=== PATIENT | female | born 1940 | race Caucasian/White ===

== ENCOUNTER → 2016-11-01 | Outpatient (CLI) | payer OTHER, MEDICARE ==
[~2016-11-01] MED LIST: AMLO-114 PO; CALCTAB65 PO; CLX20 PO; FLAX100025 PO; LPR50X PO; LSN40 PO; METO50TA17 PO; MTR600X PO; MULT-506 PO; PANT40TA PO
[2016-11-01 17:27] LABS: BASO % 0.9 %; BASO ABS # 0.07 K/uL (0-0.2); COMPLETE YES; HEMATOCRIT 39.3 % (37-47); IG% 0.1 %; LYMPH % 26.7 %; LYMPH ABS # 2.14 K/uL (1.2-3.4); MEAN CELL VOLUME 92.9 fL (80-100); MEAN CORPUSCULAR HEMOGLOBIN 30.3 pg (25-34); MEAN CORPUSCULAR HGB CONC 32.6 g/dl (32-36); MEAN PLATELET VOLUME 9.9 fL (7.4-10.4); MONO % 8.6 %; NEUT % 62.7 %; PLATELET COUNT 288 K/uL (130-400); RED BLOOD COUNT 4.23 M/uL (4.2-5.4); WHITE BLOOD COUNT 8.02 K/uL (4.8-10.8)
[2016-11-01 17:42] LABS: ALT/SGPT 23 U/L (12-78); AST/SGOT 23 U/L (15-37); BLOOD UREA NITROGEN 13 mg/dl (7-18); BUN/CREATININE RATIO 13.4 (10-20); CALCIUM 9.5 mg/dl (8.5-10.1); CARBON DIOXIDE 30 mmol/L (21-32); CHLORIDE 104 mmol/L (98-107); CREATININE 0.94 mg/dl (0.60-1.20); GLUCOSE 81 mg/dl (70-99); POTASSIUM 4.2 mmol/L (3.5-5.1); SODIUM 141 mmol/L (136-145)
[2016-11-01 17:54] LABS: ALKALINE PHOSPHATASE 62 U/L (45-117)
== END | disposition home or self-care (01) ==
LOC: C.LABBFT 11:52
PROVIDERS: ATTEND Nurse Practitioner
DX: I10 Essential (primary) hypertension (principal)

== ENCOUNTER → 2017-05-11 | Outpatient (CLI) | payer OTHER ==
[2017-05-11 12:19] LABS: BASO % 0.5 %; BASO ABS # 0.05 K/uL (0-0.2); COMPLETE YES; EOS % 1.1 %; HEMATOCRIT 38.7 % (37-47); IG% 0.2 %; LYMPH ABS # 1.87 K/uL (1.2-3.4); MEAN CELL VOLUME 91.7 fL (80-100); MEAN CORPUSCULAR HEMOGLOBIN 30.3 pg (25-34); MEAN CORPUSCULAR HGB CONC 33.1 g/dl (32-36); MEAN PLATELET VOLUME 9.9 fL (7.4-10.4); MONO % 7.7 %; NEUT % 70.5 %; PLATELET COUNT 274 K/uL (130-400); RED BLOOD COUNT 4.22 M/uL (4.2-5.4); WHITE BLOOD COUNT 9.35 K/uL (4.8-10.8)
[2017-05-11 12:36] LABS: ALT/SGPT 23 U/L (12-78); AST/SGOT 24 U/L (15-37); BLOOD UREA NITROGEN 14 mg/dl (7-18); BUN/CREATININE RATIO 15.3 (10-20); CALCIUM 9.6 mg/dl (8.5-10.1); CARBON DIOXIDE 31 mmol/L (21-32); CHLORIDE 102 mmol/L (98-107); CREATININE 0.93 mg/dl (0.60-1.20); GLUCOSE 90 mg/dl (70-99); POTASSIUM 4.1 mmol/L (3.5-5.1); SODIUM 137 mmol/L (136-145)
[2017-05-11 12:41] LABS: ALB/GLOB RATIO 1.1 (0.9-2); ALKALINE PHOSPHATASE 58 U/L (45-117); TOTAL IRON BINDING CAPACITY 276 mcg/dl (250-450)
== END | disposition home or self-care (01) ==
LOC: C.LABBFT 10:44
PROVIDERS: ATTEND Internal Medicine
DX: K57.92 Diverticulitis of intestine, part unspecified, without perforation or abscess without bleeding (principal); I10 Essential (primary) hypertension

== ENCOUNTER → 2017-05-14 | Day surgery (SDC) | payer OTHER | END | disposition home or self-care (01) | LOC: C.ACU 13:44 | PROVIDERS: ATTEND Physician Assistant Medical | DX: Z93.3 Colostomy status (principal); C64.9 Malignant neoplasm of unspecified kidney, except renal pelvis; K57.92 Diverticulitis of intestine, part unspecified, without perforation or abscess without bleeding; I10 Essential (primary) hypertension; M19.90 Unspecified osteoarthritis, unspecified site; F41.9 Anxiety disorder, unspecified; M81.0 Age-related osteoporosis without current pathological fracture; Z86.718 Personal history of other venous thrombosis and embolism; Z90.5 Acquired absence of kidney; Z82.49 Family history of ischemic heart disease and other diseases of the circulatory system; Z87.891 Personal history of nicotine dependence ==

== ENCOUNTER 2019-06-04 11:42 | Inpatient (IN) ==
[2019-06-04] MEDS ORDERED: ACETAMINOPHEN 325 MG TAB PO PRN (17:32)
[2019-06-04] MEDS ORDERED: HydrALAZINE HCL 20 MG/ML VIAL IV PRN (17:40)
--- NOTE | 2019-06-04 17:40 | History & Physical Report ---
Date of Service June 04, 2019 Assessment & Plan (1) Jaundice: Painless jaundice with Tbili of 9.3. - Plan for ERCP tomorrow with Dr. Lorenzana - NPO @ midnight - Repeat labs today - EKG for pre-op - Gentle IVFs in the AM (2) Hypertension: BP up to 180/80 on presentation. - Continue home meds - Hydralazine PRN (3) Depression: No depressive symptoms at this time. - Continue SSRI (4) DVT prophylaxis: SCDs - Hold heparin prior to ERCP History of Present Illness Primary Care Provider: Venkat De La Fuente MD 78yo F w/ hx of resected RCC who presents with painless jaundice. Was noted by her PCP on last, annual visit. Until that time, the patient had not noted it. Labs showed TBili of 9.3. CT a/p shows 1.8 cm common bile duct dilation with "abnormal density" that could represent stones, sludge, or possibly an intraductal mass. The patient was convinced to come into the hospital for an ERCP with Dr. Lorenzana. She is in her usual state of health and notes no abnormal symptoms apart from the jaundice. Allergies Allergy/AdvReac Type Severity Reaction Status Date / Time Iodinated Contrast Media AdvReac Nausea Verified 05/30/19 13:32 Home Medications Home Medications Medication Instructions Recorded Confirmed Type pantoprazole 40 mg tablet,delayed 40 mg PO DAILY #90 tab 11/20/18 06/04/19 Rx release lisinopril 20 mg tablet 20 mg PO BID #180 tab 12/10/18 06/04/19 Rx metoprolol tartrate 25 mg tablet 25 mg PO BID #180 tab 12/10/18 06/04/19 Rx mirtazapine 15 mg tablet 15 mg PO DAILY #90 tab 12/10/18 06/04/19 Rx montelukast 10 mg tablet 10 mg PO HS #90 tab 12/10/18 06/04/19 Rx escitalopram oxalate 20 mg tablet 20 mg PO DAILY #90 tab 02/04/19 06/04/19 Rx multivitamin 1 tab PO DAILY 05/18/19 06/04/19 History Past Med/Surg History Medical History History of diverticulitis of colon History of renal cell carcinoma Hypertension Surgical History History of colonoscopy History of colostomy History of laparoscopy History of nephrectomy, right Family History Mother Hypertension Brain cancer Uncle Hypertension Aunt Hypertension Social History Preferred Language: Swedish Communication Ability: Effective Hearing Ability: Normal Core Feeder Required: No Beliefs That Will Affect Care: None marital status: / Current Living Situation: Alone current occupational status: retired Other Information That Helps Us Care for You: No Feels Safe at Home: Yes Safety Concerns: Feels Safe At This Time Smoking Status: Former smoker Tobacco Type: cigarettes ; Age Started Using Tobacco: 17 ; Cigarettes Per Day: 10 ; Do You Dip or Chew Tobacco: No ; Smoking End Date: 2008 ; Second Hand Exposure: No ; Tobacco Cessation Education Requested by Patient: No Hx Alcohol Use: Yes Alcohol type: beer Alcohol Intake Frequency: Weekly Hx Substance Use: No Seatbelt Use: always Sunscreen Use: No Review of Systems Review of Systems: All systems reviewed & are unremarkable except as noted in HPI & below Physical Exam Constitutional: WD/WN, vitals as above cooperative; no acute distress Eyes: EOM intact bilaterally; no conjunctival abnormality ENMT: external ear and nose normal, oropharynx normal Neck: trachea midline, no thyromegaly normal visual inspection Respiratory: normal respiratory effort, lungs clear to auscultation no respiratory distress Cardiovascular: RRR, no murmur, no edema Gastrointestinal (Abdomen): Inspection/Auscultation: abdomen normal to inspection; abdomen not distended Musculoskeletal: no cyanosis or clubbing, extremities motor strength 5/5 Skin: no rashes, warm and dry + jaundice Neurologic: moves all extremities and awake Psychiatric: Orientation: alert, oriented to person and cooperative Results & Data Vital Signs (Past 12 Hours) Vital Signs Pulse Resp BP BP Pulse Ox 06/04/19 17:02 67 16 165/95 H 183/83 H 95 Code Status & VTE Plan VTE Prophylaxis Plan VTE Prophylaxis will be ordered: Yes PG Care Time/CCT Total # of Minutes Spent Total Time Spent with Patient: Total time spent is greater than 50% in coordination of care (as documented) at patient's floor/unit and/or counseling patient:
[2019-06-04 18:11] LABS: Basophils # (auto) 0.06 K/uL (0-0.2); Basophils % (auto) 0.6 %; Eosinophils # (auto) 0.06 K/uL (0-0.5); Eosinophils % (auto) 0.6 %; Hematocrit (blood only) 37.1 % (37-47); Hemoglobin 12.4 g/dL (12.0-16.0); Immature Granulocytes # (auto) 0.03 K/uL (0.00-0.02); Immature Granulocytes % (auto) 0.3 %; Lymphocytes # (auto) 1.52 K/uL (1.2-3.4); Lymphocytes % (auto) 14.2 %; Mean Corpuscular Hgb Conc 33.4 g/dL (32-36); Mean Corpuscular Volume 95.9 fL (80-100); Mean Platelet Volume 10.5 fL (7.4-10.4); Monocytes # (auto) 1.11 K/uL (0.11-0.59); Monocytes % (auto) 10.4 %; Neutrophils # (auto) 7.91 K/uL (1.4-6.5); Neutrophils % (auto) 73.9 %; Platelet Count 358 K/uL (130-400); RDW Coefficient of Variation 15.7 % (11.5-14.5); RDW Standard Deviation 54.4 fL (36.4-46.3); Red Blood Count 3.87 M/uL (4.2-5.4); White Blood Count 10.69 K/uL (4.8-10.8)
[2019-06-04 18:21] LABS: INR 2.2 (0.9-1.1); Prothrombin Time 21.4 Seconds (9.0-12.0)
[2019-06-04 18:32] LABS: Albumin Level 2.8 gm/dl (3.4-5.0); BUN Creatinine Ratio 9.2 (10-20); Calcium 9.5 mg/dl (8.5-10.1); Creatinine Clr Calc Pharmacy 41.5 ml/min; Est GFR (African American) 71.4; Est GFR (Non-African American) 61.6; Potassium 3.4 mmol/L (3.5-5.1)
[2019-06-04 18:35] LABS: Albumin Globulin Ratio 0.6 (0.9-2); Globulin 4.9 gm/dl (2.5-4.0); Total Protein 7.7 gm/dl (6.4-8.2)
[2019-06-04] MEDS: METOPROLOL TARTRATE 25 MG TAB PO SCH (20:45)
[2019-06-04] MEDS: lisinopriL 20 MG TAB PO SCH (20:45)
[2019-06-04] MEDS: MONTELUKAST SODIUM 10 MG TABLET PO SCH (20:45)
[2019-06-05] MEDS ORDERED: PATIENT'S HEIGHT AND/OR WEIGHT NEEDED SCH (05:00)
[2019-06-05] MEDS ORDERED: LR 15ML/HR IV SCH (06:00)
[2019-06-05] MEDS: LACTATED RINGER'S 1,000 ML IV SCH (06:07)
[2019-06-05] MEDS: METOPROLOL TARTRATE 25 MG TAB PO SCH ×2 (07:34→21:52)
[2019-06-05] MEDS: lisinopriL 20 MG TAB PO SCH ×2 (07:34→21:57)
[2019-06-05] MEDS: ESCITALOPRAM OXALATE 20 MG TAB PO SCH (07:35)
[2019-06-05] MEDS: PANTOprazole 40 MG TAB PO SCH (07:38)
[2019-06-05] MEDS: MULTIVITAMIN TAB PO SCH (07:38)
[2019-06-05] MEDS ORDERED: Nursing to Pharmacy Communication ONE (07:39)
[2019-06-05] MEDS ORDERED: MIRTAZAPINE TAB 15 MG TAB PO SCH (09:00)
[2019-06-05] MEDS ORDERED: SODIUM CHLORIDE 0.9% 250 ML IV PRN (10:54)
[2019-06-05] MEDS ORDERED: PHYTONADIONE 5 MG in SODIUM CHLORIDE 0.9% 50 ML IV STA (10:54)
--- NOTE | 2019-06-05 10:57 | Gastrointestinal Consultation ---
Date of Consultation June 05, 2019 Assessment & Plan (1) Jaundice: Pt is a 78 y/o female presented w painless jaundice, elevated LFTs, noted to have biliary ductal dilation on CT scan. - Keep NPO for EUS/ERCP this afternoon in OR by Dr. Nabil Lorenzana - Administer 2U FFP, Vit K 5mg IV now given INR of 2.2 - Trend LFTs Supervising Physician Co-Signing Physician Notes I saw and evaluated the patient. She presents with symptoms of biliary obstruction and a possible stone on recent imaging. On talking with the patient she has mentioned fatigue, nausea and occasional chills. PE: No distress scleral icterus ruq TTP Imprssion:patient with biliary obstuction, given the scenario I wonder about a stone and perhaps mild cholangitis. We have given the patient 2 u FFP and 5 mg vitamin K or reversal of a mild coaulopathy. We are planning for EGD/eus and ERCP today. I have discussed the risks to inlcude bleeding, infection, perforation, pain, pancreaitis, and failed biliary cannulation. History of Present Illness Reason for Consultation: Jaundice Requesting Physician: Dr. Juan Franklin Attending Physician: Dr. Nabil Lorenzana History of Present Illness Pt is a 78 y/o female who was admitted from PCP's office for painless jaundice x 2 days and elevated LFTs. She denies any associated symptoms of fever, chills, CP, SOB. She has a colostomy in place for hx of diverticulitis. She hasn't noticed any changes in stool output or blood per ostomy. She has noticed decreased appetite and weight loss about 10 lbs in last year. Her labs are notable for LFTs: Tbili 7, AST 200s, ALT 100s, AP 100s. INR 2.2. She denies family hx of hepatobiliary ca, pancreas ca. CT Abd/pelvis w IV contrast: 1. Intra and extra hepatic bile duct dilatation with the common bile duct containing abnormal density which could represent stones, sludge, or possibly an intraductal mass. The common bile duct is distended up to 1.8 cm. Follow-up ERCP is recommended for further evaluation. 2. Trace bilateral pleural effusions. 3. Moderate hiatus hernia. 4. No bowel wall thickening or obstruction. 5. Postoperative changes as described above. 6. Soft tissue density adjacent to the rectal stump which extends to the presacral space. This is indeterminate but favors postoperative scarring/granulation tissue. This bears watching on future examinations. Allergies Allergy/AdvReac Type Severity Reaction Status Date / Time Iodinated Contrast Media AdvReac Nausea Verified 05/30/19 13:32 Home Medications Home Medications Medication Instructions Recorded Confirmed Type pantoprazole 40 mg tablet,delayed 40 mg PO DAILY #90 tab 11/20/18 06/04/19 Rx release lisinopril 20 mg tablet 20 mg PO BID #180 tab 12/10/18 06/04/19 Rx metoprolol tartrate 25 mg tablet 25 mg PO BID #180 tab 12/10/18 06/04/19 Rx mirtazapine 15 mg tablet 15 mg PO DAILY #90 tab 12/10/18 06/04/19 Rx montelukast 10 mg tablet 10 mg PO HS #90 tab 12/10/18 06/04/19 Rx escitalopram oxalate 20 mg tablet 20 mg PO DAILY #90 tab 02/04/19 06/04/19 Rx multivitamin 1 tab PO DAILY 05/18/19 06/04/19 History Patient History Medical History (Updated 06/05/19 @ 14:17 by Franklin Carlos MD) Coagulopathy History of diverticulitis of colon History of renal cell carcinoma Hypertension Jaundice Surgical History History of colonoscopy History of colostomy History of laparoscopy History of nephrectomy, right Family History Mother Hypertension Brain cancer Uncle Hypertension Aunt Hypertension Social History Preferred Language: Martiniquais Communication Ability: Effective Hearing Ability: Normal Retail Advertising Account Executive Required: No Beliefs That Will Affect Care: None marital status: / Current Living Situation: Alone current occupational status: retired Other Information That Helps Us Care for You: No Feels Safe at Home: Yes Safety Concerns: Feels Safe At This Time Smoking Status: Former smoker Tobacco Type: cigarettes ; Age Started Using Tobacco: 17 ; Cigarettes Per Day: 10 ; Do You Dip or Chew Tobacco: No ; Smoking End Date: 2008 ; Second Hand Exposure: No ; Tobacco Cessation Education Requested by Patient: No Hx Alcohol Use: Yes Alcohol type: beer Alcohol Intake Frequency: Weekly Hx Substance Use: No Seatbelt Use: always Sunscreen Use: No Review of Systems Review of Systems: All systems reviewed & are unremarkable except as noted in HPI & below Physical Exam Constitutional: WD/WN, vitals as above well groomed, cooperative and comfortable Eyes: + scleral abnormality (icteric sclera) and EOM intact bilaterally ENMT: external ear and nose normal, oropharynx normal Respiratory: normal respiratory effort, lungs clear to auscultation Cardiovascular: RRR, no murmur, no edema Gastrointestinal (Abdomen): normal bowel sounds, soft, nontender, no hepatosplenomegaly Ostomy back on LLQ area empty Skin: no rashes, warm and dry + jaundice Neurologic: Motor/Sensory: no asterixis Psychiatric: A+Ox3, euthymic affect Lymphatic: no lymphedema Results & Data Vital Signs (Past 12 Hours) Vital Signs Temp Pulse Resp BP BP Pulse Ox 06/05/19 07:10 36.8 C 63 18 177/81 H 94 06/05/19 00:00 36.8 C 60 20 165/77 H 95
[2019-06-05] MEDS ORDERED: INDOMETHACIN 50 MG SUPP PR ONE (11:06)
[2019-06-05 11:45] LABS: INR 2.1 (0.9-1.1); Prothrombin Time 20.3 Seconds (9.0-12.0)
--- NOTE | 2019-06-05 14:19 | Anesthesiology Consultation ---
Date of Service June 05, 2019 Assessment & Plan (1) Jaundice: (2) Encounter for pre-operative examination: Chart Review Chart Review: Acceptable Risk for Surgery History Surgery Operation Date: 06/05/19 14:15 Proposed Procedures p Endoscopic Ultrasonography Upper - Nabil Lorenzana s Endoscopic Retrograde Cholangiopancreatogram - Nabil Salomón Height/Weight Height: 5 ft Weight: 60 kg Allergies Allergy/AdvReac Type Severity Reaction Status Date / Time Iodinated Contrast Media AdvReac Nausea Verified 05/30/19 13:32 Medications Home Medications Medication Instructions Recorded Confirmed Last Taken pantoprazole 40 mg tablet,delayed 40 mg PO DAILY #90 tab 11/20/18 06/04/19 06/04/19 08:15 release 40 mg lisinopril 20 mg tablet 20 mg PO BID #180 tab 12/10/18 06/04/19 06/04/19 08:15 20 mg metoprolol tartrate 25 mg tablet 25 mg PO BID #180 tab 12/10/18 06/04/19 06/04/19 08:15 25 mg mirtazapine 15 mg tablet 15 mg PO DAILY #90 tab 12/10/18 06/04/19 06/04/19 08:15 15 mg montelukast 10 mg tablet 10 mg PO HS #90 tab 12/10/18 06/04/19 06/03/19 18:00 10 mg escitalopram oxalate 20 mg tablet 20 mg PO DAILY #90 tab 02/04/19 06/04/19 06/04/19 08:15 20 mg multivitamin 1 tab PO DAILY 05/18/19 06/04/19 06/04/19 08:15 1 tab Active Medications Generic Name Dose Route Start Last Admin Trade Name Freq PRN Reason Stop Dose Admin Escitalopram Oxalate 20 mg 06/05/19 09:00 06/05/19 07:35 Lexapro Tab PO 07/05/19 08:59 20 mg DAILY IRVIN Administration Lactated Ringer's 1,000 mls @ 80 mls/hr 06/05/19 06:00 06/05/19 12:11 Lr IV 07/05/19 05:59 0 mls/hr .[id number] IRVIN Infusion Lisinopril 20 mg 06/04/19 21:00 06/05/19 07:34 Zestril PO 07/04/19 20:59 20 mg BID IRVIN Administration Metoprolol Tartrate 25 mg 06/04/19 21:00 06/05/19 07:34 Lopressor PO 07/04/19 20:59 25 mg BID IRVIN Administration Montelukast Sodium 10 mg 06/04/19 21:00 06/04/19 20:45 Singulair PO 07/04/19 20:59 10 mg HS IRVIN Administration Multivitamins 1 tab 06/05/19 09:00 06/05/19 07:38 Multivitamin Tab PO 07/05/19 08:59 Not Given DAILY IRVIN Pantoprazole Sodium 40 mg 06/05/19 09:00 06/05/19 07:38 Protonix PO 07/05/19 08:59 Not Given DAILY IRVIN NPO Date Last Intake of Fluids: 06/04/19 Time Last Intake of Fluids: 00:00 Date Last Intake of Solids: 06/04/19 Time Last Intake of Solids: 18:00 Last Intake of Solids Comment: sip of water with AM meds Past Medical History Medical History (Updated 06/05/19 @ 14:17 by Franklin Carlos MD) Coagulopathy History of diverticulitis of colon History of renal cell carcinoma Hypertension Jaundice Exercise / Class Metabolic Activity III < 4 Walking/Shop/Light housework Past Family History Family History Mother Hypertension Brain cancer Uncle Hypertension Aunt Hypertension Past Surgical History Surgical History History of colonoscopy History of colostomy History of laparoscopy History of nephrectomy, right Social History Smoking Status: Former smoker tobacco type: cigarettes Smoking cigarettes per day: 10 Do You Dip or Chew Tobacco: No Smoking End Date: 2008 Hx Alcohol Use: Yes Alcohol type: beer alcohol intake frequency: other Alcohol Intake Frequency Comment: 1 time a week Hx Substance Use: No substance use type: does not use Physical Exam Vital Signs Last Vital Signs Temp 36.7 C 06/05/19 13:45 Pulse 66 06/05/19 13:45 Resp 16 06/05/19 13:45 BP 171/73 H 06/05/19 13:45 Pulse Ox 95 06/05/19 13:45 Testing Laboratory Results 06/04/19 17:50 06/04/19 17:50 PT 20.3 Seconds (9.0-12.0) H 06/05/19 11:21 INR 2.1 (0.9-1.1) H 06/05/19 11:21 Electrocardiogram Date: 06/04/19 Findings: + NSR @ (62) and + poor R wave progression
[2019-06-05] MEDS ORDERED: fentaNYL citrate 100 MCG/2 ML VIAL IV PRN (14:20)
[2019-06-05] MEDS ORDERED: ATROPINE SULFATE 0.1 MG/ML 10ML SYR IV PRN (14:20)
[2019-06-05] MEDS ORDERED: ONDANSETRON INJ 2 MG/ML 2 ML VIAL IV PRN (14:20)
[2019-06-05] MEDS ORDERED: LABETALOL HCL IV 5 MG/ML 20ML IV PRN (14:20)
--- NOTE | 2019-06-05 14:47 | GI REPORT ---
Patient Name: Myranda San Procedure Date: 06/05/2019 2:40 PM Date of : 1940 Admit Type: Inpatient Age: 78 Gender: Female Attending MD: Nabil Lorenzana DO Procedure: Upper GI endoscopy Providers: Nabil Lorenzana DO Referring MD: Venkat De La Fuente Indications: Epigastric abdominal pain, Abdominal pain in the right upper quadrant Medicines: General Anesthesia Complications: No immediate complications. Estimated blood loss: Minimal. Estimated Blood Loss: Estimated blood loss was minimal. Procedure: Pre-Anesthesia Assessment: - Prior to the procedure, a History and Physical was performed, and patient medications, allergies and sensitivities were reviewed. The patient's tolerance of previous anesthesia was reviewed. - The risks and benefits of the procedure and the sedation options and risks were discussed with the patient. All questions were answered and informed consent was obtained. - Patient identification and proposed procedure were verified prior to the procedure by the physician, the nurse and the top distribution executive. The procedure was verified in the procedure room. - Pre-procedure physical examination revealed no contraindications to sedation. - ASA Grade Assessment: III - A patient with severe systemic disease. - After reviewing the risks and benefits, the patient was deemed in satisfactory condition to undergo the procedure. - The anesthesia plan was to use general anesthesia. - Immediately prior to administration of medications, the patient was re-assessed for adequacy to receive sedatives. - The heart rate, respiratory rate, oxygen saturations, blood pressure, adequacy of pulmonary ventilation, and response to care were monitored throughout the procedure. - The physical status of the patient was re-assessed after the procedure. After obtaining informed consent, the endoscope was passed under direct vision. Throughout the procedure, the patient's blood pressure, pulse, and oxygen saturations were monitored continuously. The Endoscope was introduced through the mouth, and advanced to the third part of duodenum. The upper GI endoscopy was accomplished without difficulty. The patient tolerated the procedure well. Findings: The examined esophagus was normal. A medium-sized hiatal hernia was found. The proximal extent of the gastric folds (end of tubular esophagus) was 30 cm from the incisors. The hiatal narrowing was 35 cm from the incisors. The Z-line was 30 cm from the incisors. The entire examined stomach was normal. The examined duodenum was normal. Impression: - Normal esophagus. - Medium-sized hiatal hernia. - Normal stomach. - Normal examined duodenum. - No specimens collected. Recommendation: - Perform an upper endoscopic ultrasound (UEUS) today. Nabil Lorenzana D.O. Nabil Lorenzana, 06/05/2019 2:47:06 PM This report has been signed electronically. Note Initiated On: 06/05/2019 2:40 PM Number of Addenda: 0 I attest to the content of the Intraoperative Record and orders documented therein, exceptions below {[id number]}
--- NOTE | 2019-06-05 15:03 | GI REPORT ---
Patient Name: Myranda San Procedure Date: 06/05/2019 2:47 PM Date of : 1940 Admit Type: Inpatient Age: 78 Gender: Female Attending MD: Nabil Lorenzana DO Procedure: Upper EUS Providers: Nabil Lorenzana DO Referring MD: Juan Elmore Md Indications: Common bile duct dilation (acquired) seen on CT scan, Elevated liver enzymes Medicines: General Anesthesia Complications: No immediate complications. Estimated blood loss: Minimal. Estimated Blood Loss: Estimated blood loss was minimal. Procedure: Pre-Anesthesia Assessment: - Prior to the procedure, a History and Physical was performed, and patient medications, allergies and sensitivities were reviewed. The patient's tolerance of previous anesthesia was reviewed. - The risks and benefits of the procedure and the sedation options and risks were discussed with the patient. All questions were answered and informed consent was obtained. - Patient identification and proposed procedure were verified prior to the procedure by the physician, the nurse and the veneer stock layer. The procedure was verified in the procedure room. - Pre-procedure physical examination revealed no contraindications to sedation. - ASA Grade Assessment: III - A patient with severe systemic disease. - After reviewing the risks and benefits, the patient was deemed in satisfactory condition to undergo the procedure. - The anesthesia plan was to use general anesthesia. - Immediately prior to administration of medications, the patient was re-assessed for adequacy to receive sedatives. - The heart rate, respiratory rate, oxygen saturations, blood pressure, adequacy of pulmonary ventilation, and response to care were monitored throughout the procedure. - The physical status of the patient was re-assessed after the procedure. After obtaining informed consent, the endoscope was passed under direct vision. Throughout the procedure, the patient's blood pressure, pulse, and oxygen saturations were monitored continuously. The Scope was introduced through the mouth, and advanced to the second part of duodenum. The upper EUS was accomplished without difficulty. The patient tolerated the procedure well. Findings: ENDOSONOGRAPHIC FINDING: : Multiple stones and a large amount of sludge was visualized endosonographically in the gallbladder. They were hyperechoic and characterized by shadowing. The gallbladder wall was thickened at 2.4 mm.ssssssssssssssssssssss There was dilation in the common bile duct which measured up to 14 mm. Many stones were visualized endosonographically in the common bile duct. The stones measured up to 14 mm in greatest dimension. They were hyperechoic and characterized by shadowing. There was no sign of significant endosonographic abnormality in the left lobe of the liver. Homogeneous parenchyma, no focal pathology, no pathologic lymphadenopathy and no masses were identified. There was no sign of significant endosonographic abnormality in the entire pancreas. No masses, no cysts, the pancreatic duct was thin in caliber. No lymphadenopathy seen. Impression: - Multiple stones // sludge was visualized endosonographically in the gallbladder. - There was dilation in the common bile duct which measured up to 14 mm. - Many stones were visualized endosonographically in the common bile duct. - There was no evidence of significant pathology in the left lobe of the liver. - There was no sign of significant pathology in the entire pancreas. - No specimens collected. Recommendation: - Perform an ERCP today. Nabil Lorenzana D.O. Nabil Lorenzana, 06/05/2019 3:02:59 PM This report has been signed electronically. Note Initiated On: 06/05/2019 2:47 PM Number of Addenda: 0 I attest to the content of the Intraoperative Record and orders documented therein, exceptions below {[id number]}
--- NOTE | 2019-06-05 15:52 | Fluoroscopy Report ---
[place] ERCP biliary ductal CLINICAL HISTORY: Elevated bilirubin, ductal dilatation. COMPARISON STUDY: CT scan dated 06/03/2019 FLUOROSCOPY TIME: 77 seconds. NUMBER OF FLUOROSCOPIC IMAGES: 10 FINDINGS: The common bile duct was cannulated and contrast was instilled. There is a large filling de fect within the distal common bile duct. Final images demonstrate placement of a biliary enteric sten t. IMPRESSION: 1. Dilated distal common bile duct with a large filling defect 2. Fluoroscopic spot images demonstrate placement of a biliary enteric stent ACT 112: Negative or not required by law. Electronically signed by: Hunter Ely M.D. 06/05/2019 3:51 PM
--- NOTE | 2019-06-05 15:55 | GI REPORT ---
Patient Name: Myranda San Procedure Date: 06/05/2019 3:03 PM Date of : 1940 Admit Type: Inpatient Age: 78 Gender: Female Attending MD: Nabil Lorenzana DO Procedure: ERCP Providers: Nabil Lorenzana DO Referring MD: Juan Elmore Md Indications: For therapy of bile duct stone(s), Suspected ascending cholangitis, Jaundice Medicines: General Anesthesia Complications: No immediate complications. Estimated blood loss: Minimal. Estimated Blood Loss: Estimated blood loss was minimal. Procedure: Pre-Anesthesia Assessment: - Prior to the procedure, a History and Physical was performed, and patient medications, allergies and sensitivities were reviewed. The patient's tolerance of previous anesthesia was reviewed. - The risks and benefits of the procedure and the sedation options and risks were discussed with the patient. All questions were answered and informed consent was obtained. - Patient identification and proposed procedure were verified prior to the procedure by the physician, the nurse and the exhaust machine operator. The procedure was verified in the procedure room. - Pre-procedure physical examination revealed no contraindications to sedation. - ASA Grade Assessment: III - A patient with severe systemic disease. - After reviewing the risks and benefits, the patient was deemed in satisfactory condition to undergo the procedure. - The anesthesia plan was to use general anesthesia. - Immediately prior to administration of medications, the patient was re-assessed for adequacy to receive sedatives. - The heart rate, respiratory rate, oxygen saturations, blood pressure, adequacy of pulmonary ventilation, and response to care were monitored throughout the procedure. - The physical status of the patient was re-assessed after the procedure. After obtaining informed consent, the scope was passed under direct vision. Throughout the procedure, the patient's blood pressure, pulse, and oxygen saturations were monitored continuously. The SCOPE was introduced through the mouth, and advanced to the duodenum and used to inject contrast into the bile duct. The ERCP was accomplished without difficulty. The patient tolerated the procedure well. Findings: The systems integration engineer film was normal. The esophagus was successfully intubated under direct vision without detailed examination of the pharynx, larynx, and associated structures, and upper GI tract. The upper GI tract was grossly normal. The major papilla was adjacent to a diverticulum. The major papilla was congested. The bile duct was deeply cannulated with the short-nosed traction sphincterotome and guidewire. Contrast was injected. I personally interpreted the bile duct images. Contrast extended to the entire biliary tree. The main bile duct was diffusely dilated, with a stone causing an obstruction. The largest diameter was 14 mm. Biliary sphincterotomy was made with a monofilament Fusion OMNI sphincterotome using ERBE electrocautery. There was no post-sphincterotomy bleeding. The lower third of the main bile duct was successfully dilated with an 8 mm balloon dilator. The biliary tree was swept with a 12 mm balloon starting at the middle third of the main bile duct. Sludge was swept from the duct. Many green pigmented stones were removed. A large stone remained. Pus was also swept from the duct. Two biliary stents (10 fr 8 cm and 8.5 fr 8 cm) with a single external flap and a single internal flap were placed 8 cm into the common bile duct. Bile flowed through the stents. The stents were in good position. The endoscope was withdrawn from the patient. Impression: - The major papilla was adjacent to a diverticulum. - The major papilla appeared congested. - Choledocholithiasis and mild cholangitis was found. Partial removal was accomplished with biliary sphincterotomy; two stents were inserted. Recommendation: - [facility]. - Use broad spectrum antibiotics for 2 weeks. - Refer to a surgeon to discuss cholecystectomy. - Repeat ERCP in 6 weeks to remove stent. - Avoid use of NSAIDS for 1 week - Please recheck INR today, if > 1.8 please give an additional unit of FFP Nabil Lorenzana D.O. Nabil Lorenzana, 06/05/2019 3:55:11 PM This report has been signed electronically. Note Initiated On: 06/05/2019 3:03 PM Number of Addenda: 0 I attest to the content of the Intraoperative Record and orders documented therein, exceptions below {[id number]}
--- NOTE | 2019-06-05 15:59 | Post Operative Brief Note ---
Immediate Post Op Note v1 Date of Surgery June 05, 2019 Pre & Post Diagnosis Operation Date: 06/05/19 14:15 Pre-Op Diagnosis: jaundice, cholangitis I identified the patient and participated in the time-out.: Yes Procedure Operation Date: 06/05/19 14:15 Actual Procedures p Endoscopic Ultrasonography Upper(Not Applicable) - Nabil Lorenzana s Endoscopic Retrograde Cholangiopancreatogram(Not Applicable) - Nabil Lorenzana Surgeon Nabil Lorenzana Shadowgraph Scale Operator none Estimated Blood Loss 0 Findings Consistent with Post-Op Diagnosis
[2019-06-05] MEDS ORDERED: PIPERACILL/TAZOBAC CONSULT ACTIVE PRN (16:00)
--- NOTE | 2019-06-05 16:25 | Hospitalist Progress Note ---
Date of Service June 05, 2019 Assessment & Plan (1) Jaundice: Painless jaundice with Tbili of 9.3. ERCP on 06/05 showed numerous stones and a large amount of sludge material within the common bile duct. - Start abx given underlying cholangitis - General surgery consult - Will recheck INR this evening (2) Hypertension: BP now 160/80 on presentation. - Continue home meds - Hydralazine PRN (3) Depression: No depressive symptoms at this time. - Continue SSRI (4) DVT prophylaxis: SCDs - Hold heparin for possible procedure Subjective No pain or issues overnight. Feels generally well. Still jaundice. Reports no fevers/chills, chest pain, shortness of breath, abdominal pain, nausea, or vomiting. Physical Exam Constitutional: WD/WN, vitals as above cooperative; no acute distress Eyes: EOM intact bilaterally; no conjunctival abnormality ENMT: external ear and nose normal, oropharynx normal Neck: trachea midline, no thyromegaly normal visual inspection Respiratory: normal respiratory effort, lungs clear to auscultation no respiratory distress Cardiovascular: RRR, no murmur, no edema Gastrointestinal (Abdomen): Inspection/Auscultation: abdomen normal to inspection; abdomen not distended Musculoskeletal: no cyanosis or clubbing, extremities motor strength 5/5 Skin: no rashes, warm and dry + jaundice Neurologic: moves all extremities and awake Psychiatric: Orientation: alert, oriented to person and cooperative Results & Data Vital Signs (Past 12 Hours) Vital Signs Temp Pulse Pulse Pulse Resp BP BP 06/05/19 16:10 76 19 162/82 H 06/05/19 16:00 76 20 152/85 H 06/05/19 15:52 36.1 C L 79 17 168/81 H 06/05/19 14:10 37 C 73 18 195/84 H 06/05/19 13:45 36.7 C 66 16 171/73 H 06/05/19 13:44 36.7 C 66 16 171/73 H 06/05/19 13:15 36.9 C 65 18 171/80 H 06/05/19 12:40 36.7 C 63 18 180/78 H 06/05/19 12:25 36.5 C 65 18 173/83 H 06/05/19 12:09 36.4 C L 68 18 171/85 H 06/05/19 11:47 36.4 C L 68 18 171/85 H 06/05/19 07:10 36.8 C 63 18 BP Pulse Ox 06/05/19 16:10 100 06/05/19 16:00 98 06/05/19 15:52 97 06/05/19 14:10 96 06/05/19 13:45 95 06/05/19 13:44 95 06/05/19 13:15 94 06/05/19 12:40 94 06/05/19 12:25 96 06/05/19 12:09 06/05/19 11:47 06/05/19 07:10 177/81 H 94 PG Care Time/CCT Total # of Minutes Spent Total Time Spent with Patient: Total time spent is greater than 50% in coordination of care (as documented) at patient's floor/unit and/or counseling patient:
[2019-06-05] MEDS ORDERED: PIPERACILLIN/TAZOBACTAM 3.375 GM in DEXTROSE 5% 100 ML IV ONE (16:30)
[2019-06-05 18:22] LABS: INR 1.5 (0.9-1.1); Prothrombin Time 14.7 Seconds (9.0-12.0)
[2019-06-05] MEDS ORDERED: CHLORASEPTIC 1.4% SOLN 180 ML BTL MT PRN (20:26)
[2019-06-05] MEDS ORDERED: ONDANSETRON INJ 2 MG/ML 2 ML VIAL IV ONE (21:34)
[2019-06-05] MEDS ORDERED: ONDANSETRON INJ 2 MG/ML 2 ML VIAL ONE (21:43)
[2019-06-05] MEDS: MONTELUKAST SODIUM 10 MG TABLET PO SCH (21:52)
[2019-06-05] MEDS: MIRTAZAPINE TAB 15 MG TAB PO SCH (21:52)
[2019-06-05] MEDS: PIPERACILLIN/TAZOBACTAM 3.375 GM in DEXTROSE 5% 100 ML IV SCH (21:57)
--- NOTE | 2019-06-05 23:14 | Electrocardiogram Report ---
Test Reason : Blood Pressure : / mmHG Vent. Rate : 062 BPM Atrial Rate : 062 BPM P-R Int : 178 ms QRS Dur : 090 ms QT Int : 434 ms P-R-T Axes : 075 013 056 degrees QTc Int : 440 ms Normal sinus rhythm Anterior infarct , age undetermined Abnormal ECG No previous ECGs available Confirmed by Jani Ontiveros ([id number]) on 06/05/2019 11:14:50 PM Referred By: Venkat De La Fuente Confirmed By:Jani Ontiveros
[2019-06-06] MEDS: LACTATED RINGER'S 1,000 ML IV SCH (02:01)
[2019-06-06] MEDS: PIPERACILLIN/TAZOBACTAM 3.375 GM in DEXTROSE 5% 100 ML IV SCH ×3 (05:59→21:20)
[2019-06-06] MEDS: MULTIVITAMIN TAB PO SCH (07:48)
[2019-06-06] MEDS: METOPROLOL TARTRATE 25 MG TAB PO SCH ×2 (07:48→21:21)
[2019-06-06] MEDS: ESCITALOPRAM OXALATE 20 MG TAB PO SCH (07:49)
[2019-06-06] MEDS: lisinopriL 20 MG TAB PO SCH ×2 (07:49→21:22)
[2019-06-06] MEDS: PANTOprazole 40 MG TAB PO SCH (07:49)
[2019-06-06 08:01] LABS: Basophils # (auto) 0.05 K/uL (0-0.2); Basophils % (auto) 0.4 %; Eosinophils # (auto) 0.04 K/uL (0-0.5); Eosinophils % (auto) 0.3 %; Hematocrit (blood only) 35.5 % (37-47); Hemoglobin 12.2 g/dL (12.0-16.0); Immature Granulocytes # (auto) 0.04 K/uL (0.00-0.02); Immature Granulocytes % (auto) 0.3 %; Lymphocytes # (auto) 1.03 K/uL (1.2-3.4); Lymphocytes % (auto) 7.3 %; Mean Corpuscular Hemoglobin 32.5 pg (25-34); Mean Corpuscular Hgb Conc 34.4 g/dL (32-36); Mean Corpuscular Volume 94.7 fL (80-100); Mean Platelet Volume 10.4 fL (7.4-10.4); Monocytes % (auto) 8.5 %; Neutrophils # (auto) 11.69 K/uL (1.4-6.5); Neutrophils % (auto) 83.2 %; Platelet Count 355 K/uL (130-400); RDW Coefficient of Variation 15.3 % (11.5-14.5); RDW Standard Deviation 52.6 fL (36.4-46.3); Red Blood Count 3.75 M/uL (4.2-5.4); White Blood Count 14.05 K/uL (4.8-10.8)
[2019-06-06 08:14] LABS: INR 1.3 (0.9-1.1); Partial Thromboplastin Time 28.2 Seconds (21.0-31.0); Prothrombin Time 13.1 Seconds (9.0-12.0)
[2019-06-06 08:15] LABS: Fibrinogen 448 mg/dl (184-400)
[2019-06-06 08:32] LABS: Albumin Globulin Ratio 0.6 (0.9-2); Albumin Level 2.6 gm/dl (3.4-5.0); BUN Creatinine Ratio 8.2 (10-20); Bilirubin,Total 7.1 mg/dl (0.2-1); Calcium 9.1 mg/dl (8.5-10.1); Est GFR (African American) 76.6; Est GFR (Non-African American) 66.1; Globulin 4.7 gm/dl (2.5-4.0); Magnesium 1.7 mg/dl (1.8-2.4); Phosphorus 3.1 mg/dl (2.5-4.9); Total Protein 7.3 gm/dl (6.4-8.2)
--- NOTE | 2019-06-06 10:25 | Surgery Consultation ---
Date of Consultation June 06, 2019 Assessment & Plan (1) Cholelithiasis: Patient does not have evidence of acute cholecystitis but does have gallstones Her bilirubin is still significantly elevated. I do not feel the patient requires urgent operation and would plan on Attempted laparoscopic cholecystectomy after her bilirubin comes down some and she is a little stronger It may be a difficult operation because of her prior surgery Advance her diet and activity as tolerated and I will continue to reassess her- it may be that we perform this in 1 to 2 weeks dep nding on her progress History of Present Illness Attending Physician: Juan Franklin MD History of Present Illness Patient is a 78-year-old female admitted to the emergency room with painless ja undice and found to have dilated common bile duct with multiple stones and also cholelithiasis INR was slightly elevated her bilirubin was 9 She underwent ERCP and EUS showing multiple common bile duct stones requiring sphincterotomy, stone removal and 2 stents to be placed-I do not believe all stones could be removed And is for repeat ERCP in 6 weeks She has a prior history of colostomy for diverticulosis with a long midline incision and a right nephrectomy Allergies Allergy/AdvReac Type Severity Reaction Status Date / Time Iodinated Contrast Media AdvReac Nausea Verified 05/30/19 13:32 Home Medications Home Medications Medication Instructions Recorded Confirmed Type pantoprazole 40 mg tablet,delayed 40 mg PO DAILY #90 tab 11/20/18 06/04/19 Rx release lisinopril 20 mg tablet 20 mg PO BID #180 tab 12/10/18 06/04/19 Rx metoprolol tartrate 25 mg tablet 25 mg PO BID #180 tab 12/10/18 06/04/19 Rx mirtazapine 15 mg tablet 15 mg PO DAILY #90 tab 12/10/18 06/04/19 Rx montelukast 10 mg tablet 10 mg PO HS #90 tab 12/10/18 06/04/19 Rx escitalopram oxalate 20 mg tablet 20 mg PO DAILY #90 tab 02/04/19 06/04/19 Rx multivitamin 1 tab PO DAILY 05/18/19 06/04/19 History Patient History Medical History (Updated 06/06/19 @ 10:28 by Pablo Burrows MD, FACS) Coagulopathy History of diverticulitis of colon History of renal cell carcinoma Hypertension Jaundice Surgical History History of colonoscopy History of colostomy History of laparoscopy History of nephrectomy, right Family History Mother Hypertension Brain cancer Uncle Hypertension Aunt Hypertension Social History Preferred Language: Macedonian Communication Ability: Effective Hearing Ability: Normal Community Service Director Required: No Beliefs That Will Affect Care: None marital status: / Current Living Situation: Alone current occupational status: retired Other Information That Helps Us Care for You: No Feels Safe at Home: Yes Safety Concerns: Feels Safe At This Time Smoking Status: Former smoker Tobacco Type: cigarettes ; Age Started Using Tobacco: 17 ; Cigarettes Per Day: 10 ; Do You Dip or Chew Tobacco: No ; Smoking End Date: 2008 ; Second Hand Exposure: No ; Tobacco Cessation Education Requested by Patient: No Hx Alcohol Use: Yes Alcohol type: beer Alcohol Intake Frequency: Weekly Hx Substance Use: No Seatbelt Use: always Sunscreen Use: No Physical Exam Physical Exam: Patient is awake and alert she is clearly jaundiced sclera are icteric Her abdomen is soft she does have a colostomy in the left mid lower abdomen a large midline incision Respiratory: normal respiratory effort; no respiratory distress Cardiovascular: Rate/Rhythm: regular rate Skin: no rashes, warm and dry Neurologic: awake Psychiatric: Orientation: alert Results & Data Vital Signs (Past 12 Hours) Vital Signs Temp Pulse Resp BP Pulse Ox 06/06/19 07:35 36.9 C 66 18 168/83 H 91 06/05/19 23:33 37.2 C 75 20 158/75 H 93 I did review her CAT scan , and ERCP results PG Care Time/CCT Total # of Minutes Spent Total Time Spent with Patient: Total time spent is greater than 50% in coordination of care (as documented) at patient's floor/unit and/or counseling patient:
--- NOTE | 2019-06-06 10:33 | Gastroenterology Progress Note ---
Date of Service June 06, 2019 Assessment & Plan (1) Jaundice: Pt is a 78 y/o female presented w painless jaundice, elevated LFTs, noted to have biliary ductal dilation on CT scan. EGD/EUS/ERCP done on 06/05/19. Hiatal hernia, choledocholithiasis found, removed, 2 biliary stents placed, sphi ncterectomy performed. + signs of cholangitis as well noted, started on Zosyn IV. LFTs coming down today - Continue broad spectrum antibx for at least 2 weeks - Trend LFTs - Avoid ASA or NSAIDs at least 7 days after sphincterectomy - Repeat ERCP in 6 week's time to remove stents - Surgery consulted to eval for cholecystectomy - Please recall GI prn Attg add: I interviewed and examined pt, reviewed chart and labs. Pt with no complaints, improved labs. Roshan sign off , please reconsult as needed. Subjective Pt reports feeling tired today otherwise fine, denies any fever, chills, CP, SOB, abd pain, n/v. LFTs trending down. INR now 1.3 Review of Systems Review of Systems: All systems reviewed & are unremarkable except as noted in HPI & below Physical Exam Constitutional: WD/WN, vitals as above well groomed, cooperative and comfortable Eyes: + scleral abnormality (icteric sclera) and EOM intact bilaterally ENMT: external ear and nose normal, oropharynx normal Respiratory: normal respiratory effort, lungs clear to auscultation Cardiovascular: RRR, no murmur, no edema Gastrointestinal (Abdomen): normal bowel sounds, soft, nontender, no hepatosplenomegaly ostomy bag to LLQ area w liquid brown stool Skin: no rashes, warm and dry + jaundice Neurologic: Motor/Sensory: no asterixis Psychiatric: A+Ox3, euthymic affect Lymphatic: no lymphedema Results & Data Vital Signs (Past 12 Hours) Vital Signs Temp Pulse Resp BP Pulse Ox 06/06/19 07:35 36.9 C 66 18 168/83 H 91 06/05/19 23:33 37.2 C 75 20 158/75 H 93
[2019-06-06] MEDS: MAGNESIUM SULFATE / D5W 1 GM/100 ML BAG IV SCH ×2 (11:42→12:56)
[2019-06-06] MEDS: POTASSIUM CHLORIDE / WTR 10 MEQ/100 ML PLCT IV SCH ×4 (11:45→15:30)
--- NOTE | 2019-06-06 17:38 | Hospitalist Progress Note ---
Date of Service June 06, 2019 Assessment & Plan (1) Jaundice: Painless jaundice with Tbili of 9.3. ERCP on 06/05 showed numerous stones and a large amount of sludge material within the common bile duct. - Started abx given concern for underlying cholangitis - Will do a 2 week course. - General surgery consulted - Plan to let the gallbladder settle down and remove in 1-2 weeks. - INR has normalized with vitamin K. (2) Hypertension: BP now 165/90. - Continue home meds - Hydralazine PRN (3) Depression: No depressive symptoms at this time. - Continue SSRI (4) DVT prophylaxis: SCDs - Early ambulation as well. Subjective No symptoms today other than still being yellow. Reports no fevers/chills, chest pain, shortness of breath, abdominal pain, nausea, or vomiting. Physical Exam Constitutional: WD/WN, vitals as above cooperative; no acute distress Eyes: EOM intact bilaterally; no conjunctival abnormality ENMT: external ear and nose normal, oropharynx normal Neck: trachea midline, no thyromegaly normal visual inspection Respiratory: normal respiratory effort, lungs clear to auscultation no respiratory distress Cardiovascular: RRR, no murmur, no edema Gastrointestinal (Abdomen): Inspection/Auscultation: abdomen normal to inspection; abdomen not distended Musculoskeletal: no cyanosis or clubbing, extremities motor strength 5/5 Skin: no rashes, warm and dry + jaundice Neurologic: moves all extremities and awake Psychiatric: Orientation: alert, oriented to person and cooperative Results & Data Vital Signs (Past 12 Hours) Vital Signs Temp Pulse Resp BP Pulse Ox 06/06/19 14:40 36.9 C 76 18 165/89 H 91 06/06/19 07:35 36.9 C 66 18 168/83 H 91 PG Care Time/CCT Total # of Minutes Spent Total Time Spent with Patient: Total time spent is greater than 50% in coordination of care (as documented) at patient's floor/unit and/or counseling patient:
[2019-06-06] MEDS ORDERED: ONDANSETRON INJ 2 MG/ML 2 ML VIAL IV ONE (21:02)
[2019-06-06] MEDS: MIRTAZAPINE TAB 15 MG TAB PO SCH (21:22)
[2019-06-06] MEDS: MONTELUKAST SODIUM 10 MG TABLET PO SCH (21:22)
[2019-06-07] MEDS: PIPERACILLIN/TAZOBACTAM 3.375 GM in DEXTROSE 5% 100 ML IV SCH ×2 (05:59→15:41)
[2019-06-07 06:17] LABS: Hematocrit (blood only) 38.5 % (37-47); Hemoglobin 12.8 g/dL (12.0-16.0); Mean Corpuscular Hemoglobin 31.4 pg (25-34); Mean Corpuscular Hgb Conc 33.2 g/dL (32-36); Mean Corpuscular Volume 94.4 fL (80-100); Mean Platelet Volume 10.5 fL (7.4-10.4); Platelet Count 308 K/uL (130-400); RDW Coefficient of Variation 15.1 % (11.5-14.5); RDW Standard Deviation 51.9 fL (36.4-46.3); Red Blood Count 4.08 M/uL (4.2-5.4); White Blood Count 11.31 K/uL (4.8-10.8)
[2019-06-07 06:26] LABS: INR 1.4 (0.9-1.1); Prothrombin Time 13.8 Seconds (9.0-12.0)
[2019-06-07 06:58] LABS: Albumin Level 2.5 gm/dl (3.4-5.0); BUN Creatinine Ratio 8.1 (10-20); Calcium 8.8 mg/dl (8.5-10.1); Creatinine Clr Calc Pharmacy 39.7 ml/min; Est GFR (African American) 67.7; Est GFR (Non-African American) 58.5; Magnesium 2.3 mg/dl (1.8-2.4); Potassium 3.1 mmol/L (3.5-5.1)
[2019-06-07 06:59] LABS: Albumin Globulin Ratio 0.5 (0.9-2); Bilirubin,Total 6.7 mg/dl (0.2-1); Globulin 4.8 gm/dl (2.5-4.0); Phosphorus 2.3 mg/dl (2.5-4.9); Total Protein 7.3 gm/dl (6.4-8.2)
[2019-06-07] MEDS ORDERED: POTASSIUM CHLORIDE 20 MEQ TABCR PO STA (07:10)
--- NOTE | 2019-06-07 07:24 | Surgery Progress Note ---
Date of Service June 07, 2019 Assessment & Plan (1) Cholelithiasis: Patient s/p ERCP on 06/05/19 LFT's still elevated but are downtrending; Tbili 6.7 (7.1), AST: 80 (96), ALT: 76 (79), Alkp: 210 (224) WBC downtrending 11.3 (14), and patient afebrile She denies any abdominal pain and she is tolerating a regular diet Continue to allow LFTs to come down We will call patient to schedule surgery for cholecystectomy sometime potentially next wk Dr Burrows- will contact pt to schedule lap komal- possibly for 06/16/19- Subjective Patient states she feels well today, slept good overnight. She says she is tolerating a regular diet. Denies abdominal pain, nausea, vomiting, or fevers. + stool in ostomy bag. Physical Exam Constitutional: no acute distress Gastrointestinal (Abdomen): Inspection/Auscultation: abdomen not distended Percussion/Palpation: abdomen soft; abdomen nontender + ostomy with stool Skin: + jaundice Results & Data Vital Signs (Past 12 Hours) Vital Signs Temp Pulse Resp BP Pulse Ox 06/06/19 23:04 36.9 C 67 18 157/88 H 92 06/06/19 21:21 76 171/74 H PG Care Time/CCT Total # of Minutes Spent Total Time Spent with Patient: Total time spent is greater than 50% in coordination of care (as documented) at patient's floor/unit and/or counseling patient:
[2019-06-07] MEDS ORDERED: PHYTONADIONE 5 MG in SODIUM CHLORIDE 0.9% 50 ML IV SCH (07:30)
[2019-06-07] MEDS: ESCITALOPRAM OXALATE 20 MG TAB PO SCH (08:50)
[2019-06-07] MEDS: METOPROLOL TARTRATE 25 MG TAB PO SCH (08:54)
[2019-06-07] MEDS: MULTIVITAMIN TAB PO SCH (08:54)
[2019-06-07] MEDS: PANTOprazole 40 MG TAB PO SCH (08:55)
[2019-06-07] MEDS: lisinopriL 20 MG TAB PO SCH (08:55)
[2019-06-07] MEDS ORDERED: POTASSIUM PHOS 3 MMOL/1 ML INFUSION IV STA (09:14)
[2019-06-07] MEDS ORDERED: POTASSIUM PHOSPHATE 21 MMOL in SODIUM CHLORIDE 0.9% 500 ML IV SCH (09:30)
--- NOTE | 2019-06-07 11:35 | Discharge Summary ---
Date of Service June 07, 2019 Admission HPI Per Admitting Provider 78yo F w/ hx of resected RCC who presents with painless jaundice. Was noted by her PCP on last, annual visit. Until that time, the patient had not noted it. Labs showed TBili of 9.3. CT a/p shows 1.8 cm common bile duct dilation with "abnormal density" that could represent stones, sludge, or possibly an intraductal mass. The patient was convinced to come into the hospital for an ERCP with Dr. Lorenzana. She is in her usual state of health and notes no abnormal symptoms apart from the jaundice. Principal Diagnosis Jaundice due to impacted gallbladder stones Discharge Exam Constitutional WD/WN, vitals as above cooperative; no acute distress Eyes EOM intact bilaterally; no conjunctival abnormality ENMT external ear and nose normal, oropharynx normal Neck trachea midline, no thyromegaly normal visual inspection Respiratory normal respiratory effort, lungs clear to auscultation no respiratory distress Cardiovascular RRR, no murmur, no edema Gastrointestinal (Abdomen) Inspection/Auscultation: abdomen normal to inspection; abdomen not distended Musculoskeletal no cyanosis or clubbing, extremities motor strength 5/5 Skin no rashes, warm and dry + jaundice Neurologic moves all extremities and awake Psychiatric Orientation: alert, oriented to person and cooperative Discharge Data Allergies Allergy/AdvReac Type Severity Reaction Status Date / Time Iodinated Contrast Media AdvReac Nausea Verified 05/30/19 13:32 Consultations 06/04/19 17:32 Consult Gastroenterology Routine 06/06/19 08:42 Consult General Surgery Routine 06/07/19 09:14 Consult [facility] leather stretcher Routine Procedures Performed Operation Date: 06/05/19 14:15 Actual Procedures p Endoscopic Ultrasonography Upper(Not Applicable) - Nabil Lorenzana s Endoscopic Retrograde Cholangiopancreatogram(Not Applicable) - Nabil Lorenzana Ordered Studies 06/05/19 12:30 FL ERCP biliary ductal Routine 06/05/19 14:37 US upper EUS PACS images Routine Hospital Course (1) Jaundice: Painless jaundice with Tbili of 9.3. ERCP on 06/05 showed numerous stones and a large amount of sludge material within the common bile duct. - Started abx given concern for underlying cholangitis - Will do a 2 week course of Augmentin. - General surgery consulted - Plan to let the gallbladder settle down and remove in 1-2 weeks. - INR was 2.2 on admission. Normalized with vitamin K. Given 1 additional dose of vitamin K before discharge as it was up a touch to 1.4. This should be rechecked next week. - Should follow up with surgery next week and GI in 2-4 weeks for follow up. If the INR goes back up, she should see GI sooner. (2) Hypertension: BP now 165/90. - Continue home meds (3) Depression: No depressive symptoms at this time. - Continue SSRI (4) DVT prophylaxis: SCDs - Early ambulation as well. Total Time Total Time Spent Total Time Spent (In Minutes): 35 Discharge Plan Discharge Items Patient Disposition: Home - Self-Care Reason For Visit: JAUNDICE Discharge Diagnosis: Gallbladder and bile duct stones Activity: Resume your previous activity Non-emergency contact: Primary Care Provider, Surgeon and Ink Printer Call non-emergency contact if: your symptoms worsen, your pain is worsening and your temperature is above 101 Follow-up/Referrals: Pablo Burrows MD, FACS [Physician] - (We will call you to schedule your surgery for removal of your gallbladder, but if you have any questions/concerns you may call our office.) Venkat De La Fuente III, MD [Primary Care Provider] - Diet: Regular Addtl Attending Provider Instructions: You were admitted for jaundice which is when your bilirubin gets too high. This was caused by stones that were in your gallbladder and got stuck on the way to your small intestine. The GI doctors did a procedure where they got the stones out of the bile duct and put a stent in to keep it open. (called an ERCP) The surgeons saw you and would like you to have some time to recover before they remove your gallbladder next week or the week after. Please take your antibiotic 2 times per day. It will help keep your gallbladder from getting inflamed or infected. Please continue taking these antibiotics no matter what. If you develop a stomach ache, diarrhea, nausea, or other issues, call Dr. De La Fuente or Dr. Burrows's office. Please see Dr. De La Fuente next week to test your electrolytes, liver functions, and INR (a test of blood clotting) to be sure they are all returning to normal. These were all going in the right direction on discharge, and we just want to be sure they are back to normal. Pending Studies at Discharge: No Stand-Alone Forms: My [facility] [employer], Smoking Cessation Medications and DC Order Prescriptions: New amoxicillin-pot clavulanate [Augmentin] 875-125 mg tablet 1 tab PO BID Qty: 28 RF: 0 Continued pantoprazole 40 mg tablet,delayed release (DR/EC) 40 mg PO DAILY Qty: 90 RF: 3 lisinopril 20 mg tablet 20 mg PO BID Qty: 180 RF: 3 mirtazapine 15 mg tablet 15 mg PO DAILY Qty: 90 RF: 3 metoprolol tartrate 25 mg tablet 25 mg PO BID Qty: 180 RF: 1 montelukast 10 mg tablet 10 mg PO HS Qty: 90 RF: 3 escitalopram oxalate 20 mg tablet 20 mg PO DAILY Qty: 90 RF: 1 multivitamin [Daily Multi-Vitamin] tablet 1 tab PO DAILY RF: 0 Discharge Orders: Discharge Order (Routine); Ordered 06/07/19 Ordered By: Juan Franklin Admission Data Admit Date/Time: 06/04/19 16:12 Attending Provider: Juan Franklin Admit Provider: Juan Franklin Primary Care Provider: Venkat De La Fuente III Other Providers: Nabil Lorenzana ; Martin Aguilar
== END 2019-06-07 17:34 | disposition home or self-care (01) | DRG 445 ==
LOC: 4W 16:12

== ENCOUNTER 2020-02-23 06:47 | Inpatient (IN) ==
--- NOTE | 2020-02-19 12:41 | Anesthesiology Consultation ---
Date of Service February 19, 2020 Assessment & Plan Chart Review Chart Review: Acceptable Risk for Surgery and Patient NOT seen in Pre Admission Testing Consults Requested none ASA ASA4 Proposed Anesthesia Anesthesia Type: General History Surgery Operation Date: 02/23/20 10:45 Proposed Procedures p Laparoscopic Cholecystectomy - Pablo Burrows MD, FACS Height/Weight Height: 5 ft Weight: 60.328 kg Allergies Allergy/AdvReac Type Severity Reaction Status Date / Time Iodinated Contrast Media AdvReac Intermediate Nausea Verified 02/10/20 12:59 Medications Home Medications Medication Instructions Recorded Confirmed Last Taken multivitamin 1 tab PO BID 05/18/19 02/10/20 12/11/19 18:00 metoprolol tartrate 25 mg tablet 25 mg PO BID #180 tab 06/16/19 02/10/20 12/12/19 07:30 escitalopram oxalate 20 mg tablet 20 mg PO QAM #90 tab 08/05/19 02/10/20 12/11/19 08:00 pantoprazole 40 mg tablet,delayed 40 mg PO QAM #90 tab 11/28/19 02/10/20 12/12/19 07:30 release lisinopril 20 mg tablet 20 mg PO BID #180 tab 12/25/19 02/10/20 Unknown mirtazapine 15 mg tablet 15 mg PO HS #90 tab 01/08/20 02/10/20 Unknown montelukast 10 mg tablet 10 mg PO HS #90 tab 01/08/20 02/10/20 Unknown Past Medical History Medical History Anxiety Chronic back pain Chronic sinusitis Colostomy in place Deep vein thrombosis ~. no problems since. Depression GERD (gastroesophageal reflux disease) History of diverticulitis of colon History of renal cell carcinoma Hypertension Memory loss mild Osteoarthritis Exercise / Class Metabolic Activity III < 4 Walking/Shop/Light housework Past Family History Family History Mother Hypertension Brain cancer Uncle Hypertension Aunt Hypertension Past Surgical History Surgical History History of bowel resection History of colonoscopy History of colostomy History of ERCP mult. most recent 12/12/2019 [facility] S/P ERCP with stent exchange: 07/02/19: Grade view 1, MAC#3, ETT 7.0 at [facility] History of hysterectomy History of laparoscopy History of nephrectomy, right Hx of exploratory laparotomy Past Anesthesia History No Hx of Anesthesia Complications and No Family Hx of Anesthesia Complications History of PONV No Hx of PONV and No Hx of Motion Sickness Social History Smoking Status: Former smoker tobacco type: cigarettes Smoking cigarettes per day: 1/2 PPD FOR 50 YRS Do You Dip or Chew Tobacco: No Smoking End Date: 11 years ago Hx Alcohol Use: Yes Alcohol type: beer alcohol intake frequency: a few times a month Hx Substance Use: No substance use type: does not use Testing Electrocardiogram Date: 12/12/19 Findings: + NSR @ (@ 66; ? Old inferior mi) and + NSST changes
--- NOTE | 2020-02-23 06:03 | History & Physical Bridge Note ---
Date of Service February 23, 2020 History & Physical Bridge Note I have examined the patient, reviewed the History & Physical and in the interval since the performance of the History & Physical I have noted the following changes of clinical significance: no changes noted
[~2020-02-23 06:47] MED LIST changes: -AMLO-114 PO; -CALCTAB65 PO; -CLX20 PO; -FLAX100025 PO; -LPR50X PO; +LR 15ML/HR IV SCH; -LSN40 PO; -METO50TA17 PO; -MTR600X PO; -MULT-506 PO; -PANT40TA PO; +cefOXitin 2,000 MG in DEXTROSE 5% 50 ML IV SCH
[2020-02-23] MEDS ORDERED: fentaNYL citrate 100 MCG/2 ML VIAL ONE ×3 (07:54→09:29)
[2020-02-23] MEDS ORDERED: LIDOCAINE HCL 2% 2 ML VIAL/AMP(20MG/ML) INFIL ONE (07:54)
[2020-02-23] MEDS ORDERED: ONDANSETRON INJ 2 MG/ML 2 ML VIAL ONE (07:54)
[2020-02-23] MEDS ORDERED: DEXAMETHASONE SOD INJ 4 MG/ML VIAL ONE (07:54)
[2020-02-23] MEDS ORDERED: PROPOFOL IV EMULSION 10 MG/ML 20 ML VIAL IV ONE (07:54)
[2020-02-23] MEDS ORDERED: GLYCOPYRROLATE 0.2 MG/ML VIAL ONE (07:54)
[2020-02-23] MEDS ORDERED: NEOSTIGMINE METHYLSULFATE 5 MG/5 ML SYR ONE (07:54)
[2020-02-23] MEDS ORDERED: PROMETHAZINE HCL 6.25 MG in SODIUM CHLORIDE 0.9% 50 ML IV PRN (07:56)
[2020-02-23] MEDS ORDERED: ePHEDrine sulfate 50 MG/ML AMP IV PRN (07:56)
[2020-02-23] MEDS ORDERED: ATROPINE SULFATE 0.1 MG/ML 10ML SYR IV PRN (07:56)
[2020-02-23] MEDS ORDERED: ONDANSETRON INJ 2 MG/ML 2 ML VIAL IV PRN ×2 (07:56→12:11)
[2020-02-23] MEDS ORDERED: fentaNYL citrate 100 MCG/2 ML VIAL IV PRN (07:56)
[2020-02-23] MEDS ORDERED: BUPIVACAINE 0.5 % 5 MG/1 ML MPF 30ML VIAL ONE (08:27)
[2020-02-23] MEDS ORDERED: ROCURONIUM BROMIDE 10 MG/ML 5 ML VIAL IV ONE (09:31)
[2020-02-23] MEDS ORDERED: PHENYLEPHRINE 100MCG/ML 5ML SYR ONE (09:31)
[2020-02-23] MEDS ORDERED: ePHEDrine sulfate 50 MG/ML SYR ONE (09:31)
[2020-02-23] MEDS ORDERED: ACETAMINOPHEN 1000 MG/100 ML IV IV ONE (09:31)
[2020-02-23] MEDS ORDERED: LABETALOL HCL IV 5 MG/ML 20ML IV ONE (09:37)
[2020-02-23] MEDS ORDERED: THROMBIN FOR SOLN 20000 UNIT KIT ONE (09:41)
[2020-02-23] MEDS ORDERED: SURGICEL ABSORB HEMOSTAT 2IN X 14IN TOP ONE (09:48)
[2020-02-23] MEDS ORDERED: HydrALAZINE HCL 20 MG/ML VIAL ONE (09:51)
--- NOTE | 2020-02-23 10:23 | Post Operative Brief Note ---
PG Immediate Post Op with CF Date of Surgery February 23, 2020 Pre & Post Diagnosis Operation Date: 02/23/20 08:35 Pre-Op Diagnosis: Cholelithiasis Post-Op Diagnosis: Cholelithiasis, gallstone pancreatitis, common bile duct obstruction I identified the patient and participated in the time-out.: Yes Procedure Operation Date: 02/23/20 08:35 Actual Procedures p Attempte laparoscopy open cholecystectomy - Pablo Burrows MD, FACS Surgeon Pablo Burrows MD, FACS Centrifugal Wax Molder Dixon Maxwell Estimated Blood Loss 30 Findings Consistent with Post-Op Diagnosis Specimens Specimen Description: A. Gallbladder Drains Delagdo Catheter and Chet-Aguilar Drain
[2020-02-23] MEDS ORDERED: ACETAMINOPHEN 1,000 MG/100 ML VIAL IV ONE (10:34)
--- NOTE | 2020-02-23 11:44 | Anesthesiology Progress Note ---
Date of Service February 23, 2020 Anesthesia Post Procedure Vital Signs Vital Signs: Temp Pulse Pulse Resp BP BP Pulse Ox 02/23/20 11:30 36.5 C 60 22 122/62 95 02/23/20 11:25 59 L 23 107/58 L 95 02/23/20 11:15 63 21 104/55 L 95 02/23/20 11:05 58 L 22 97/49 L 96 02/23/20 10:55 62 22 118/58 L 97 02/23/20 10:49 36.6 C 66 16 109/55 L 97 02/23/20 07:21 36.7 C 68 20 197/92 H 92 Pain Intensity Abdomen: Pain Intensity: 0 Transfer of Care Handoff Completed per policy Notes Mental Status: alert / awake / arousable Patient Amnestic to Procedure: Yes Nausea / Vomiting: adequately controlled Pain: adequately controlled Airway Patency, RR, SpO2: stable & adequate BP & HR: stable & adequate Hydration State: stable & adequate Anesthetic Complications: no major complications apparent
--- NOTE | 2020-02-23 11:47 | Operative Report (OR) ---
DATE OF OPERATION: 02/23/2020 NAME OF OPERATION: Attempted laparoscopy with open cholecystectomy. PREOPERATIVE DIAGNOSES: Cholelithiasis, gallstone pancreatitis and history of common bile duct obstruction. STAFF SURGEON: Pablo Burrows MD. OFFICE SYSTEM ANALYST: Stefanie Maxwell PA-C. ANESTHESIA: General. DESCRIPTION OF PROCEDURE: The patient was brought in the operating room and placed on the operating table in supine position. She had undergone multiple ERCP stent placement procedures because of gallstone pancreatitis and common bile duct obstruction. My painter assistant helped with prepping, draping, removal of the gallbladder and closure of the wounds. The patient's abdomen was prepped and draped. She had a colostomy on the left side, which was covered with an Op-Site. Incision was made on the right abdomen. I attempted to perform an open entry and I could not enter the abdomen secondary to adhesions. I attempted a second area medially and cephalad also unsuccessful. At this point, I made a subcostal incision in the right upper quadrant connecting the 2 incisions, carrying dissection down into the abdomen encountering dense adhesions of the omentum, colon and stomach to the liver and surrounding tissue. Slowly, I was able to mobilize the subhepatic space, identifying what I felt was the gallbladder. It was mobilized, it was severely adherent to surrounding tissue. I removed it from the tip of the fundus down to the heide hepatis, identifying what I felt was the cystic artery, which was ligated using 2-0 chromic and 2-0 silk suture and then the cystic duct was identified, transected and ligated using 0 chromic suture. At this point, the site was irrigated. Surgicel and thrombin placed into the subhepatic space, 19 round Chet-Aguilar drain placed into the subhepatic space, secured to the skin using 3-0 nylon suture through a separate stab incision. Fascia closed using 2-0 chromic and #1 PDS suture. Quarter inch Dina drain placed in the subcutaneous space, secured using 4-0 nylon suture. Skin reapproximated using kevin. The patient was transferred to recovery room in stable condition. I attest to the content of the Intraoperative Record and any orders documented therein. Any exception s are noted below.
[2020-02-23] MEDS ORDERED: MoRPHine SULFATE 2 MG/ML CARP IV PRN ×2 (12:11)
[2020-02-23] MEDS ORDERED: HYDROCODONE/ACETAMOPHEN 5/325MG TAB PO PRN ×2 (12:11)
[2020-02-23] MEDS ORDERED: PROMETHAZINE HCL 12.5 MG in SODIUM CHLORIDE 0.9% 50 ML IV PRN (12:11)
[2020-02-23] MEDS: SODIUM CHLORIDE 0.9% 1000ML 1,000 ML IV SCH (12:29)
[2020-02-23] MEDS ORDERED: TRAMADOL HCL 50 MG TABLET PO PRN (15:19)
[2020-02-23] MEDS ORDERED: ACETAMINOPHEN 1,000 MG/100 ML VIAL IV PRN (15:19)
[2020-02-23] MEDS: ACETAMINOPHEN 325 MG TAB PO PRN ×2 (16:53→21:08)
--- NOTE | 2020-02-23 17:34 | Hospitalist Consultation ---
Date of Consultation February 23, 2020 Assessment & Plan (1) Post-operative state: s/p open komal 02/22 Monitor for acute blood loss Pain control, dvt proph per primary (2) Hypertension: Continue home lisinopril, metropolol (3) GERD (gastroesophageal reflux disease): continue home pantoprazole (4) Depression: continue mirtazapine, escitalopram (5) Irregular heart rate: ECG poor quality but similar to previous in November, rhythm NSR. Supervising Physician Co-Signing Physician Notes Patient seen and examined with Jeri ROSARIO. I agree with her exam findings, review of systems, assessment and plan. I personally reviewed the lab work and imaging as well. patient doing well post op several chronic medical conditions that are all well controlled, stable - s/p open cholecystectomy: management per general surgery, doing relatively well post op - HTN: BP regimen from home, monitor pressures - GERD, Depression: stable follow up labs in AM History of Present Illness Attending Physician: Pablo Burrows MD, FACS History of Present Illness Ms. San is post open cholecystectomy today. She is feeling sore in her belly but otherwise has no complaints Allergies Allergy/AdvReac Type Severity Reaction Status Date / Time Iodinated Contrast Media AdvReac Intermediate Nausea Verified 02/23/20 07:18 Home Medications Home Medications Medication Instructions Recorded Confirmed Type multivitamin 1 tab PO BID 05/18/19 02/23/20 History metoprolol tartrate 25 mg tablet 25 mg PO BID #180 tab 06/16/19 02/23/20 Rx escitalopram oxalate 20 mg tablet 20 mg PO QAM #90 tab 08/05/19 02/23/20 Rx pantoprazole 40 mg tablet,delayed 40 mg PO QAM #90 tab 11/28/19 02/23/20 Rx release lisinopril 20 mg tablet 20 mg PO BID #180 tab 12/25/19 02/23/20 Rx mirtazapine 15 mg tablet 15 mg PO HS #90 tab 01/08/20 02/23/20 Rx montelukast 10 mg tablet 10 mg PO HS #90 tab 01/08/20 02/23/20 Rx Patient History Medical History (Updated 02/24/20 @ 11:04 by MARLENE Pinto) Anxiety Chronic back pain Chronic sinusitis Colostomy in place Deep vein thrombosis ~. no problems since. Depression GERD (gastroesophageal reflux disease) History of diverticulitis of colon History of renal cell carcinoma Hypertension Memory loss mild Osteoarthritis Surgical History (Updated 02/24/20 @ 06:26 by Pablo Burrows MD, FACS) History of bowel resection History of colonoscopy History of colostomy History of ERCP mult. most recent 12/12/2019 [facility] S/P ERCP with stent exchange: 07/02/19: Grade view 1, MAC#3, ETT 7.0 at [facility] History of hysterectomy History of laparoscopy History of nephrectomy, right Hx of exploratory laparotomy S/P cholecystectomy (02/23/20) Attempted laparoscopy with open cholecystectomy. Dr. Burrows 02/23/2020 Family History Mother Hypertension Brain cancer Uncle Hypertension Aunt Hypertension Social History Smoking Status: Former smoker Age Started Using Tobacco: 17; Cigarettes Per Day: 1/2 PPD FOR 50 YRS; Second Hand Exposure: No; Hx Alcohol Use: Yes Alcohol type: beer Hx Substance Use: No Preferred Language: Sami Communication Ability: Effective Hearing Ability: Normal Service Order Expediter Required: No Beliefs That Will Affect Care: None marital status: / Current Living Situation: Alone current occupational status: retired Feels Safe at Home: Yes Seatbelt Use: always Sunscreen Use: No Assistive Devices: None Review of Systems Constitutional: no fever, no chills and no body aches Respiratory: no cough, no dyspnea and no wheezing Cardiovascular: no chest pain and no palpitations Gastrointestinal: + abdominal pain; no nausea, no vomiting and no diarrhea/loose stools Genitourinary: + dysuria; no urinary hesitancy Musculoskeletal: no back pain and no joint pain Integumentary: no rash Physical Exam Physical Exam: General: no distress Eyes: normal inspection, PERLL Respiratory: chest non tender, clear to auscultation, normal breath sounds, no respiratory distress, no accessory muscle use Cardiac: irregular rate and rhythm, no rub or gallop, no murmur, no edema, no jvd GI/: active bowel sounds, no abd pain or tenderness, soft, non distended Extremities: normal range of motion, normal strength, non tender Neuro/Psych: alert and oriented x 3, normal mood and affect Skin: normal color, dry Results & Data Results & Data ([facility]) Vital Signs (Past 12 Hours) Vital Signs Temp Pulse Pulse Pulse Resp BP BP 02/23/20 15:25 36.5 C 70 16 135/80 02/23/20 13:49 36.8 C 65 22 138/70 02/23/20 12:50 36.6 C 66 20 133/69 02/23/20 12:12 36.6 C 67 16 144/73 H 02/23/20 11:45 36.6 C 60 18 127/72 02/23/20 11:30 36.5 C 60 22 122/62 02/23/20 11:25 59 L 23 107/58 L 02/23/20 11:15 63 21 104/55 L 02/23/20 11:05 58 L 22 97/49 L 02/23/20 10:55 62 22 118/58 L 02/23/20 10:49 36.6 C 66 16 109/55 L 02/23/20 07:21 36.7 C 68 20 197/92 H Pulse Ox 02/23/20 15:25 94 02/23/20 13:49 94 02/23/20 12:50 93 02/23/20 12:12 95 02/23/20 11:45 96 02/23/20 11:30 95 02/23/20 11:25 95 02/23/20 11:15 95 02/23/20 11:05 96 02/23/20 10:55 97 02/23/20 10:49 97 02/23/20 07:21 92 PG Care Time/CCT Total # of Minutes Spent Total Time Spent with Patient: Total time spent is greater than 50% in coordination of care (as documented) at patient's floor/unit and/or counseling patient: Coding Level of Care Code 20669 Inpt Consult Level 4 Diagnoses Post-operative state Z98.890 Hypertension I10 GERD (gastroesophageal reflux disease) K21.9 Depression F32.9 Irregular heart rate I49.9
[2020-02-23] MEDS: METOPROLOL TARTRATE 25 MG TAB PO SCH (21:08)
[2020-02-23] MEDS: lisinopriL 20 MG TAB PO SCH (21:08)
[2020-02-24] MEDS: SODIUM CHLORIDE 0.9% 1000ML 1,000 ML IV SCH ×2 (01:27→16:19)
[2020-02-24 05:26] LABS: Hematocrit (blood only) 39.1 % (37-47); Hemoglobin 12.5 g/dL (12.0-16.0); Immature Granulocytes # (auto) 0.04 K/uL (0.00-0.02); Immature Granulocytes % (auto) 0.3 %; Lymphocytes % (auto) 7.6 %; Mean Corpuscular Volume 93.8 fL (80-100); Mean Platelet Volume 9.5 fL (7.4-10.4); Monocytes % (auto) 10.3 %; Neutrophils # (auto) 11.87 K/uL (1.4-6.5); Neutrophils % (auto) 81.8 %; Platelet Count 251 K/uL (130-400); RDW Coefficient of Variation 13.5 % (11.5-14.5); RDW Standard Deviation 46.5 fL (36.4-46.3); Red Blood Count 4.17 M/uL (4.2-5.4); White Blood Count 14.51 K/uL (4.8-10.8)
[2020-02-24 05:58] LABS: Albumin Level 2.6 gm/dl (3.4-5.0); BUN Creatinine Ratio 9.6 (10-20); Bilirubin Direct 0.3 mg/dl (0-0.2); Calcium 8.3 mg/dl (8.5-10.1); Creatinine Clr Calc Pharmacy 34.8 ml/min; Est GFR (African American) 58.8; Est GFR (Non-African American) 50.7; Magnesium 1.6 mg/dl (1.8-2.4); Potassium 4.1 mmol/L (3.5-5.1)
[2020-02-24 06:01] LABS: Albumin Globulin Ratio 0.7 (0.9-2); Bilirubin,Total 0.8 mg/dl (0.2-1); Globulin 3.5 gm/dl (2.5-4.0); Phosphorus 3.5 mg/dl (2.5-4.9); Total Protein 6.1 gm/dl (6.4-8.2)
--- NOTE | 2020-02-24 06:27 | Surgery Progress Note ---
Date of Service February 24, 2020 Assessment & Plan (1) Status post cholecystectomy: Patient underwent open cholecystectomy She had very severe adhesions and the operation was very difficult She has a drain in place She seems to be doing very well We will advance her diet and activity Continue IV antibiotic Check her laboratories We will likely need several days in the hospital Admission and Anticipated Discharge Date Admission Date: February 23, 2020 Results & Data ([facility]) Vital Signs (Past 12 Hours) Vital Signs Temp Pulse Pulse Resp BP BP Pulse Ox 02/24/20 03:50 37.3 C 73 14 152/68 H 93 02/23/20 22:58 37.4 C 70 14 116/65 92 02/23/20 21:07 83 143/76 H 02/23/20 19:17 37.1 C 84 16 144/78 H 92 PG Care Time/CCT Total # of Minutes Spent Total Time Spent with Patient: Total time spent is greater than 50% in coordination of care (as documented) at patient's floor/unit and/or counseling patient: Coding Level of Care Code None Diagnoses Status post cholecystectomy Z90.49
--- NOTE | 2020-02-24 08:18 | Anesthesiology Progress Note ---
Date of Service February 24, 2020 Anesthesia Post Procedure Vital Signs Vital Signs: Temp Pulse Pulse Pulse Resp BP BP 02/24/20 07:38 37.0 C 71 16 168/69 H 02/24/20 03:50 37.3 C 73 14 152/68 H 02/23/20 22:58 37.4 C 70 14 116/65 02/23/20 21:07 83 143/76 H 02/23/20 19:17 37.1 C 84 16 144/78 H 02/23/20 15:25 36.5 C 70 16 135/80 02/23/20 13:49 36.8 C 65 22 138/70 02/23/20 12:50 36.6 C 66 20 133/69 02/23/20 12:12 36.6 C 67 16 144/73 H 02/23/20 11:45 36.6 C 60 18 127/72 02/23/20 11:30 36.5 C 60 22 122/62 02/23/20 11:25 59 L 23 107/58 L 02/23/20 11:15 63 21 104/55 L 02/23/20 11:05 58 L 22 97/49 L 02/23/20 10:55 62 22 118/58 L 02/23/20 10:49 36.6 C 66 16 109/55 L Pulse Ox 02/24/20 07:38 92 02/24/20 03:50 93 02/23/20 22:58 92 02/23/20 21:07 02/23/20 19:17 92 02/23/20 15:25 94 02/23/20 13:49 94 02/23/20 12:50 93 02/23/20 12:12 95 02/23/20 11:45 96 02/23/20 11:30 95 02/23/20 11:25 95 02/23/20 11:15 95 02/23/20 11:05 96 02/23/20 10:55 97 02/23/20 10:49 97 Pain Intensity Abdomen: Pain Intensity: 5 Notes Mental Status: alert / awake / arousable and participated in evaluation Nausea / Vomiting: adequately controlled Pain: adequately controlled Airway Patency, RR, SpO2: stable & adequate BP & HR: stable & adequate Hydration State: stable & adequate Anesthetic Complications: no major complications apparent and Pt Satisfied with anesthetic care
[2020-02-24] MEDS: lisinopriL 20 MG TAB PO SCH ×2 (08:58→20:39)
[2020-02-24] MEDS: PANTOprazole 40 MG TAB PO SCH (08:58)
[2020-02-24] MEDS: METOPROLOL TARTRATE 25 MG TAB PO SCH ×2 (08:58→20:38)
[2020-02-24] MEDS: ACETAMINOPHEN 325 MG TAB PO PRN ×2 (08:58→20:35)
[2020-02-24] MEDS ORDERED: MAGNESIUM SULFATE / D5W 1 GM/100 ML BAG IV ONE (09:00)
--- NOTE | 2020-02-24 11:07 | Hospitalist Progress Note ---
Date of Service February 24, 2020 Assessment & Plan (1) Post-operative state: s/p open komal 02/22 Hgb stable Pain control, dvt proph per primary (2) Hypertension: Continue home lisinopril, metropolol (3) GERD (gastroesophageal reflux disease): continue home pantoprazole (4) Depression: continue mirtazapine, escitalopram (5) Irregular heart rate: ECG poor quality but similar to previous in November, rhythm NSR. (6) Elevated AST (SGOT): AST 48 which is at the lower end of values since May. Bili 0.8 Follow with pcp (7) Hypomagnesemia: Mag 1.6 - 1g IV magnesium given to replace Thank you for involving us in the care of this patient. Medicine will sign off at this time. Please call with any questions or concerns. Admission and Anticipated Discharge Date Admission Date: February 23, 2020 Subjective Ms. San is up to a chair at the time of my assessment. She is sore at her surgical site but otherwise has no complaints. Passing gas, no bm since surgery ROS Constitutional: no chills, aches, sweats or fever Respiratory: no sob,cough, sputum, or wheezing Cardiac: no chest pain, palpitations, edema, orthopnea or lightheadedness GI: no abdominal pain, nausea, vomiting, diarrhea or constipation : no dysuria or hesitancy Extremities: no joint pain or weakness Skin: no rash All other systems reviewed and negative Physical Exam Physical Exam: General: no distress Eyes: normal inspection, PERLL Respiratory: chest non tender, clear to auscultation, normal breath sounds, no respiratory distress, no accessory muscle use Cardiac: regular rate and rhythm, no rub or gallop, no murmur, no edema, no jvd GI/: active bowel sounds, no abd pain or tenderness, soft, non distended Extremities: normal range of motion, normal strength, non tender Neuro/Psych: alert and oriented x 3, normal mood and affect Skin: normal color, dry Results & Data Results & Data ([facility]) Vital Signs (Past 12 Hours) Vital Signs Temp Pulse Pulse Resp BP Pulse Ox 02/24/20 07:38 37.0 C 71 16 168/69 H 92 02/24/20 03:50 37.3 C 73 14 152/68 H 93 PG Care Time/CCT Total # of Minutes Spent Total Time Spent with Patient: Total time spent is greater than 50% in coordination of care (as documented) at patient's floor/unit and/or counseling patient: Coding Level of Care Code 00365 Subseq Hosp Care Lvl 2 Diagnoses Post-operative state Z98.890 Hypertension I10 GERD (gastroesophageal reflux disease) K21.9 Depression F32.9 Irregular heart rate I49.9 Elevated AST (SGOT) R74.0 Hypomagnesemia E83.42
[2020-02-24] MEDS: HEPARIN SOD 5,000 UNIT/0.5 ML VIAL SQ SCH ×2 (12:20→20:39)
--- NOTE | 2020-02-24 21:56 | Electrocardiogram Report ---
Test Reason : Blood Pressure : / mmHG Vent. Rate : 069 BPM Atrial Rate : 069 BPM P-R Int : 174 ms QRS Dur : 084 ms QT Int : 424 ms P-R-T Axes : 083 000 074 degrees QTc Int : 454 ms Poor data quality, interpretation may be adversely affected Normal sinus rhythm Nonspecific T wave abnormality Possible Inferior infarct Abnormal ECG When compared with ECG of 12-DEC-2019 13:21, Nonspecific T wave abnormality now evident in Anterior leads Confirmed by Jani Ontiveros ([id number]) on 02/24/2020 9:55:56 PM Referred By: Pablo Burrows Confirmed By:Jani Ontiveros
--- NOTE | 2020-02-25 07:09 | Surgery Progress Note ---
Date of Service February 25, 2020 Assessment & Plan (1) Status post cholecystectomy: vss olga some reg food drain- bilious- leave drain- cont IV atbx assess mobility only po day 2 Admission and Anticipated Discharge Date Admission Date: February 23, 2020 Results & Data ([facility]) Vital Signs (Past 12 Hours) Vital Signs Temp Pulse Resp BP Pulse Ox 02/24/20 23:39 36.8 C 72 16 151/87 H 94 PG Care Time/CCT Total # of Minutes Spent Total Time Spent with Patient: Total time spent is greater than 50% in coordination of care (as documented) at patient's floor/unit and/or counseling patient: Coding Level of Care Code None Diagnoses Status post cholecystectomy Z90.49
[2020-02-25] MEDS: METOPROLOL TARTRATE 25 MG TAB PO SCH ×2 (08:52→20:44)
[2020-02-25] MEDS: HEPARIN SOD 5,000 UNIT/0.5 ML VIAL SQ SCH ×2 (08:52→20:45)
[2020-02-25] MEDS: lisinopriL 20 MG TAB PO SCH ×2 (08:53→20:44)
[2020-02-25] MEDS: PANTOprazole 40 MG TAB PO SCH (08:53)
[2020-02-25] MEDS: DOCUSATE SODIUM/SENNA 50/8.6MG TAB PO SCH ×2 (08:54→20:44)
[2020-02-25] MEDS: POLYETHYLENE (MIRALAX) 17 GM PACK PO SCH (09:34)
[2020-02-25] MEDS: SODIUM CHLORIDE 0.9% 1000ML 1,000 ML IV SCH (22:42)
[2020-02-26] MEDS: SODIUM CHLORIDE 0.9% 1000ML 1,000 ML IV SCH (00:30)
--- NOTE | 2020-02-26 05:56 | Surgery Progress Note ---
Date of Service February 26, 2020 Assessment & Plan (1) Status post cholecystectomy: Vital signs stable Decreased drainage, no significant colostomy output yet Taking some p.o., positive fluid balance-stop maintenance IV Continue IV antibiotics Monitor drain output and colostomy output Admission and Anticipated Discharge Date Admission Date: February 23, 2020 Results & Data ([facility]) Vital Signs (Past 12 Hours) Vital Signs Temp Pulse Pulse Resp BP BP Pulse Ox 02/26/20 04:41 168/80 H 02/26/20 04:38 167/88 H 02/25/20 23:13 164/94 H 02/25/20 23:12 36.4 C L 77 16 174/84 H 96 02/25/20 20:42 81 129/71 PG Care Time/CCT Total # of Minutes Spent Total Time Spent with Patient: Total time spent is greater than 50% in coordination of care (as documented) at patient's floor/unit and/or counseling patient: Coding Level of Care Code None Diagnoses Status post cholecystectomy Z90.49
[2020-02-26 07:41] LABS: Hematocrit (blood only) 39.5 % (37-47); Hemoglobin 13.5 g/dL (12.0-16.0); Mean Corpuscular Hemoglobin 31.3 pg (25-34); Mean Corpuscular Hgb Conc 34.2 g/dL (32-36); Mean Corpuscular Volume 91.4 fL (80-100); Platelet Count 240 K/uL (130-400); RDW Coefficient of Variation 13.3 % (11.5-14.5); RDW Standard Deviation 45.1 fL (36.4-46.3); Red Blood Count 4.32 M/uL (4.2-5.4); White Blood Count 12.37 K/uL (4.8-10.8)
[2020-02-26] MEDS: POLYETHYLENE (MIRALAX) 17 GM PACK PO SCH (08:43)
[2020-02-26] MEDS: PANTOprazole 40 MG TAB PO SCH (08:44)
[2020-02-26] MEDS: lisinopriL 20 MG TAB PO SCH ×2 (08:44→22:00)
[2020-02-26] MEDS: METOPROLOL TARTRATE 25 MG TAB PO SCH ×2 (08:44→22:01)
[2020-02-26] MEDS: DOCUSATE SODIUM/SENNA 50/8.6MG TAB PO SCH ×2 (08:45→21:58)
[2020-02-26] MEDS: HEPARIN SOD 5,000 UNIT/0.5 ML VIAL SQ SCH ×2 (08:46→22:01)
[2020-02-26] MEDS: ACETAMINOPHEN 325 MG TAB PO PRN ×2 (17:52→22:12)
--- NOTE | 2020-02-27 07:27 | Surgery Progress Note ---
Date of Service February 27, 2020 Assessment & Plan (1) Status post cholecystectomy: Patient with open cholecystectomy Vital signs are stable Appears to have serous drainage-leave drain for now Continue on IV antibiotics Plan for discharge tomorrow Admission and Anticipated Discharge Date Admission Date: February 23, 2020 Results & Data ([facility]) Vital Signs (Past 12 Hours) Vital Signs Temp Pulse Resp BP Pulse Ox 02/26/20 23:14 36.6 C 70 16 169/81 H 96 PG Care Time/CCT Total # of Minutes Spent Total Time Spent with Patient: Total time spent is greater than 50% in coordination of care (as documented) at patient's floor/unit and/or counseling patient: Coding Level of Care Code None Diagnoses Status post cholecystectomy Z90.49
[2020-02-27] MEDS: DOCUSATE SODIUM/SENNA 50/8.6MG TAB PO SCH ×2 (07:35→20:39)
[2020-02-27] MEDS: lisinopriL 20 MG TAB PO SCH ×2 (07:35→20:38)
[2020-02-27] MEDS: METOPROLOL TARTRATE 25 MG TAB PO SCH ×2 (07:35→20:38)
[2020-02-27] MEDS: POLYETHYLENE (MIRALAX) 17 GM PACK PO SCH (07:36)
[2020-02-27] MEDS: PANTOprazole 40 MG TAB PO SCH (07:36)
[2020-02-27] MEDS: HEPARIN SOD 5,000 UNIT/0.5 ML VIAL SQ SCH ×2 (08:43→20:40)
[2020-02-27] MEDS: ACETAMINOPHEN 325 MG TAB PO PRN ×2 (13:00→20:59)
[2020-02-28] MEDS: ACETAMINOPHEN 325 MG TAB PO PRN (01:20)
[2020-02-28] MEDS: METOPROLOL TARTRATE 25 MG TAB PO SCH (09:06)
[2020-02-28] MEDS: PANTOprazole 40 MG TAB PO SCH (09:06)
[2020-02-28] MEDS: lisinopriL 20 MG TAB PO SCH (09:06)
[2020-02-28] MEDS: DOCUSATE SODIUM/SENNA 50/8.6MG TAB PO SCH (09:06)
--- NOTE | 2020-02-28 21:18 | Discharge Summary (DS) ---
PRINCIPAL DIAGNOSES: Cholelithiasis with a common bile duct obstruction and gallstone pancreatitis. PROCEDURES: The patient underwent attempted laparoscopy, then open cholecystectomy with drain placement. HISTORY OF PRESENT ILLNESS: The patient is an 79-year-old female who has a history of common duct obstruction from stones and significant cholelithiasis. She has undergone multiple ERCP procedures in the last 6-8 months and it is felt that it is almost imperative that she have her gallbladder removed. She has had multiple prior operations and has a colostomy. HOSPITAL COURSE: The patient was brought into the hospital on 02/23/2020, she was taken to the operating room. I attempted to perform laparoscopy, but could not enter the abdomen encountering significant adhesions; therefore, I made an incision in the right upper quadrant, again encountering significant dense adhesions of the colon and omentum to the liver and gallbladder. It was even somewhat difficult to identify her gallbladder initially. I was able to dissect the gallbladder free from the top down identifying what I felt was the cystic duct and ligating the duct. I did place a drain in the subhepatic space. She did tolerate the procedure very well and has done well in the hospital with activity and p.o. intake without taking any significant pain medication. She does have some bilious drainage from her drain, which does seem to be decreasing over the days. We are going to leave the drain an unspecified period of time, possibly 4-6 weeks and continue to assess her. She may need early GI followup depending on her progress. She is ready for discharge today on 02/28/2020.
[2020-03-08] MEDS ORDERED: INFLUENZA ADMINISTRATION CHARGE ONE (11:53)
[2020-03-08] MEDS ORDERED: INFLUENZA VACCINE HIGH DOSE 65+ 0.5 ML SYR IM ONE (11:53)
== END 2020-02-28 11:20 | disposition home or self-care (01) | DRG 414 ==
LOC: ASU 06:47 → 3N 10:29
PROC: M.CHOLE (2020-02-23 08:35)